=== PATIENT | female | born 1990 | race Caucasian/White ===

== ENCOUNTER → 2017-11-15 08:33 | Outpatient (CLI) | payer OTHER, SELFPAY ==
[2017-11-15 12:12] LABS: Hematocrit 40.9 % (37-47); Hemoglobin 13.6 g/dl (12.0-15.0); Mean Corp Hgb Conc 33.3 g/gl (32-36); Mean Corpuscular Hgb 31.6 pg (27.0-32.0); Mean Corpuscular Volume 94.9 fL (81-99); Mean Platelet Vol. 9.3 fl (6.2-12.0); Platelet Count 257 K/mm3 (150-450); RBC Distribution Width CV 12.6 % (11.6-14.6); RBC Distribution Width SD 43.6 fl (35.1-43.9); Red Blood Count 4.31 M/mm3 (4.2-5.4)
[2017-11-15 12:13] LABS: Scan Indicated on CBC? Y/N NO
[2017-11-18 13:43] LABS: Pathologist Review Reviewed
== END ==
PROVIDERS: Family Provider Family Medicine; PCP Family Medicine; Visit Provider Family Medicine
DX: R59.9 Enlarged lymph nodes, unspecified (principal)
CPT/HCPCS: 36415; 85027

== ENCOUNTER → 2018-02-27 15:57 | Outpatient (CLI) | payer OTHER, SELFPAY | LOC: LABSPEC 15:59 | PROVIDERS: Family Provider Family Medicine; PCP Family Medicine; Visit Provider Dermatology | DX: J34.0 Abscess, furuncle and carbuncle of nose (principal); L70.0 Acne vulgaris | CPT/HCPCS: 87070; 87077; 87186; 87205 ==